=== PATIENT | male | born 1955 | race Caucasian/White ===

== ENCOUNTER 2016-12-11 10:53 | Inpatient (IN) | payer SELFPAY ==
[~2016-12-11] VITALS: Ht 182.9 cm; Wt 32.5 kg
[2016-12-11] VITALS (10 sets, daily range): BP systolic 111–157; BP diastolic 72–95; PULSE 68–90; RESP 16–18; TEMP 97.8–98.1; O2SAT 96–99
[~2016-12-11 10:53] MED LIST: IBUP-238 PO; SULF-154 PO
[2016-12-11] MEDS ORDERED: ZOLO50TA PO (11:05)
[2016-12-11] MEDS ORDERED: LISI10TA3 PO (11:05)
[2016-12-11] MEDS ORDERED: BUPR150CR PO (11:05)
--- NOTE | 2016-12-11 11:10 | PD ---
HPI Chief Complaint: Neuro Symptoms/ Deficits Time Seen by Provider: 10:56 Travel History International Travel<30 days: No Contact w/Intl Traveler<30days: No Traveled to known affect area: No History of Present Illness HPI This patient is brought in by ambulance complaining of right-sided weakness. He woke up with weakness of the right arm and right leg yesterday morning. The duration is 28 hours. Severity symptoms is moderate. He does not have sensory loss or speech slurring or confusion. No recent head injury. Takes no blood thinners and has no prior history of neurologic disease. He does have bipolar and PTSD but thinks those of been fairly well controlled. No alleviating factors. PFSH Past Medical History Bipolar Disorder: Yes Cardiovascular Problems: Yes (HBP) Diminished Hearing: No Hypertension: Yes Immunizations Current: Yes Past Surgical History Tonsillectomy: Yes Social History Alcohol Use: Yes ("couple beers and a couple shots per day") Tobacco Use: Yes (10-15 cigarettes/day (40 years) ) Substance Use: Yes (Marijuana) Allergies-Medications (Allergen,Severity, Reaction): Coded Allergies: No Known Allergies (Verified , 12/11/16) Reported Meds & Prescriptions Reported Meds & Active Scripts Active Reported Zoloft (Sertraline HCl) 50 Mg Tab 50 Mg PO DAILY Lisinopril 10 Mg Tab 10 Mg PO DAILY Wellbutrin SR 12 HR (Bupropion HCl) 150 Mg Tab 150 Mg PO Q12HR Review of Systems General / Constitutional: No: Fever Eyes: No: Visual changes HENT: No: Headaches Cardiovascular: No: Chest Pain or Discomfort Respiratory: No: Shortness of Breath Gastrointestinal: No: Abdominal Pain Genitourinary: No: Dysuria Musculoskeletal: Positive: Weakness, No: Pain Skin: No Rash Neurologic: Positive: Weakness Psychiatric: No: Depression Endocrine: No: Polydipsia Hematologic/Lymphatic: No: Easy Bruising Physical Exam Narrative GENERAL: Well-nourished, well-developed patient in no apparent distress. SKIN: Warm and dry. Chronic scabbed over wound on the lateral left lower leg HEAD: Atraumatic. Normocephalic. EYES: Pupils equal and round. No scleral icterus. No injection or drainage. ENT: No nasal bleeding or discharge. Mucous membranes pink and moist. NECK: Trachea midline. No JVD. CARDIOVASCULAR: Regular rate and rhythm. No murmur appreciated. RESPIRATORY: No accessory muscle use. Clear to auscultation. Breath sounds equal bilaterally. GASTROINTESTINAL: Abdomen soft, non-tender, nondistended. Hepatic and splenic margins not palpable. MUSCULOSKELETAL: No obvious deformities. No clubbing. No cyanosis. No edema. NEUROLOGICAL: Awake and alert. No obvious cranial nerve deficits. Motor exam shows significant weakness of the right arm and right leg. Normal speech. No facial droop. PSYCHIATRIC: Appropriate mood and affect; insight and judgment normal. Data Data Last Documented VS Vital Signs Date Time Temp Pulse Resp B/P Pulse Ox O2 Delivery O2 Flow Rate FiO2 12/11/16 12:50 84 16 129/88 98 Room Air 12/11/16 10:59 98.1 Orders Electrocardiogram (12/11/16 ) Prothrombin Time / Inr (Pt) (12/11/16 11:03) Act Partial Throm Time (Ptt) (12/11/16 11:03) Complete Blood Count With Diff (12/11/16 11:03) Basic Metabolic Panel (Bmp) (12/11/16 11:03) Ct Brain W/O Iv Contrast(Rout) (12/11/16 11:03) Ecg Monitoring (12/11/16 11:03) Iv Access Insert/Monitor (12/11/16 11:03) Oximetry (12/11/16 11:03) Sodium Chloride 0.9% Flush (Ns Flush) (12/11/16 11:15) Aspirin (Aspirin) (12/11/16 12:45) Admit Order (Ed Use Only) (12/11/16 13:37) Labs Laboratory Tests Test 12/11/16 11:00 White Blood Count 9.9 TH/MM3 Red Blood Count 5.21 MIL/MM3 Hemoglobin 14.9 GM/DL Hematocrit 45.1 % Mean Corpuscular Volume 86.6 FL Mean Corpuscular Hemoglobin 28.7 PG Mean Corpuscular Hemoglobin 33.1 % Concent Red Cell Distribution Width 15.3 % Platelet Count 180 TH/MM3 Mean Platelet Volume 8.8 FL Neutrophils (%) (Auto) 72.7 % Lymphocytes (%) (Auto) 15.8 % Monocytes (%) (Auto) 8.8 % Eosinophils (%) (Auto) 2.4 % Basophils (%) (Auto) 0.3 % Neutrophils # (Auto) 7.2 TH/MM3 Lymphocytes # (Auto) 1.6 TH/MM3 Monocytes # (Auto) 0.9 TH/MM3 Eosinophils # (Auto) 0.2 TH/MM3 Basophils # (Auto) 0.0 TH/MM3 CBC Comment DIFF FINAL Differential Comment Prothrombin Time 10.6 SEC Prothromb Time International 1.0 RATIO Ratio Activated Partial 30.1 SEC Thromboplast Time Sodium Level 135 MEQ/L Potassium Level 5.3 MEQ/L Chloride Level 104 MEQ/L Carbon Dioxide Level 26.2 MEQ/L Anion Gap 5 MEQ/L Blood Urea Nitrogen 28 MG/DL Creatinine 1.33 MG/DL Estimat Glomerular Filtration 55 ML/MIN Rate Random Glucose 81 MG/DL Calcium Level 11.1 MG/DL [facility] Medical Decision Making Medical Screen Exam Complete: Yes Emergency Medical Condition: Yes Medical Record Reviewed: Yes Differential Diagnosis CVA, TIA, intracranial hemorrhage, conversion disorder Narrative Course I have reviewed the patient's electronic medical record. He was seen here 6 months ago for evaluation of the left lower leg chronic wound Presentation here is concerning for acute CVA IV placed Reviewed his EKG which shows sinus rhythm without ectopy Extended cardiac monitoring reveals sinus rhythm without ectopy Brain CT shows an age-indeterminate left parietal infarct CBC is normal Metabolic profile is normal Coagulation studies are normal Patient has had right-sided weakness for 28+ hours and therefore is well out of the window for consideration of TPA. I discussed with hospitalist will admit for neurologic evaluation given his acute ischemic stroke causing right-sided weakness Diagnosis Primary Impression: Idiopathic ischemic cerebrovascular accident (CVA) in adult Admitting Information Admitting Physician Requests: Admit Daniel Ramos MD Dec 11, 2016 11:10
[2016-12-11] MEDS ORDERED: SODIUM CHLORIDE 0.9% FLUSH 5 ML FLUSH IVF PRN ×2 (11:15→14:15)
[2016-12-11 11:29] LABS: AUTOMATED NEUTROPHIL # 7.2 TH/MM3 (1.8-7.7); BASOPHIL % 0.3 % (0.0-2.0); EOSINOPHIL # 0.2 TH/MM3 (0-0.4); EOSINOPHIL % 2.4 % (0.0-4.0); HEMATOCRIT 45.1 % (39.0-51.0); HEMO FLAGS DIFF FINAL; LYMPH % 15.8 % (9.0-44.0); LYMPHOCYTE # 1.6 TH/MM3 (1.0-4.8); MEAN CELL VOLUME 86.6 FL (80.0-100.0); MEAN CORPUSCULAR HEMOGLOBIN 28.7 PG (27.0-34.0); MEAN CORPUSCULAR HGB CONC 33.1 % (32.0-36.0); MONO % 8.8 % (0.0-8.0); NEUT % 72.7 % (16.0-70.0); PLATELET COUNT 180 TH/MM3 (150-450); RED BLOOD COUNT 5.21 MIL/MM3 (4.50-5.90); RED CELL DISTRIBUTION WIDTH 15.3 % (11.6-17.2); WHITE BLOOD COUNT 9.9 TH/MM3 (4.0-11.0)
[2016-12-11 11:33] LABS: APTT (PATIENT) 30.1 SEC (24.3-30.1); PROTHROMBIN TIME - PATIENT 10.6 SEC (9.8-11.6)
[2016-12-11 11:39] LABS: BICARBONATE 26.2 MEQ/L (21.0-32.0); POTASSIUM 5.3 MEQ/L (3.5-5.1)
--- NOTE | 2016-12-11 11:52 | RADRPT ---
EXAM DATE/TIME: 12/11/2016 11:33 [facility] COMPARISON: No previous studies available for comparison. INDICATIONS : Weakness right side of body since yesterday. RADIATION DOSE: 42.10 CTDIvol (mGy) MEDICAL HISTORY : Cardiovascular disease. Hypertension. SURGICAL HISTORY : None. ENCOUNTER: Initial ACUITY: 1 day PAIN SCALE: 0/10 LOCATION: cranial TECHNIQUE: Multiple contiguous axial images were obtained of the head. Using automated exposure control and adj ustment of the mA and/or kV according to patient size, radiation dose was kept as low as reasonably a chievable to obtain optimal diagnostic quality images. FINDINGS: CEREBRUM: Patchy areas of low-attenuation are seen throughout the white matter. There is a small area of low-de nsity along the high left parietal convexity could be an area of infarction. The ventricles are jan l for age. No evidence of midline shift, mass lesion, hemorrhage or acute infarction. No extra-axia l fluid collections are seen. POSTERIOR FOSSA: The cerebellum and brainstem are intact. The 4th ventricle is midline. The cerebellopontine angle i s unremarkable. EXTRACRANIAL: The visualized portion of the orbits is intact. SKULL: The calvaria is intact. No evidence of skull fracture. CONCLUSION: 1. Nonspecific white matter changes. 2. Small area of low attenuation high left parietal convexity could be an area of infarct of indeterm inate age. MRI may be warranted. Ruddy Albert MD on December 11, 2016 at 11:49 Board Certified Radiologist. This report was verified electronically.
[2016-12-11] MEDS ORDERED: ASPIRIN 325 MG TAB PO ONE (12:45)
--- NOTE | 2016-12-11 14:04 | HHI.HP ---
[facility] Service [facility] Primary Care Physician Unknown Admission Diagnosis acute ischemic CVA Diagnoses: (1) CVA (cerebral vascular accident) (2) Idiopathic ischemic cerebrovascular accident (CVA) in adult Chief Complaint: Right-sided weakness Travel History International Travel<30 Days: No Contact w/Intl Traveler <30 Da: No Traveled to Known Affected Are: No History of Present Illness 61 year-old male with a history of hypertension, tobacco abuse was brought to the ED for evaluation of right-sided weakness which patient noticed yesterday morning after he woke up from sleep. Had both right arm and right leg weakness and inability to move the whole entire right side and remained in his bed for a few hours before able to make a phone call as patient stated he was unable to reach a phone. He claimed, he was well the night before going to bed. He had no other symptoms including slurring of speech, confusion, chest pain or shortness of breath. He denies any head trauma. He reports about 28 hours of right-sided weakness prior to coming to the hospital. Review of Systems Other 12 systems reviewed and are negative except for the one mentioned in the history of present illness Past Family Social History Past Medical History Bipolar Disorder: Yes Cardiovascular Problems: Yes (HBP) Hypertension: Yes Past Surgical History Tonsillectomy Surgery to left knee Reported Medications Zoloft (Sertraline HCl) 50 Mg Tab 50 Mg PO DAILY Lisinopril 10 Mg Tab 10 Mg PO DAILY Wellbutrin SR 12 HR (Bupropion HCl) 150 Mg Tab 150 Mg PO Q12HR Allergies: Coded Allergies: No Known Allergies (Verified , 12/11/16) Family History Father with history of CAD, Parkinson disease, hypertension Social History Alcohol Use: Social alcohol Tobacco Use: Yes (10-15 cigarettes/day (40 years) ) Substance Use: Yes (Marijuana) Physical Exam Vital Signs Vital Signs Date Time Temp Pulse Resp B/P Pulse Ox O2 Delivery O2 Flow Rate FiO2 12/11/16 12:50 84 16 129/88 98 Room Air 12/11/16 11:52 90 17 150/90 98 Room Air 12/11/16 11:00 17 98 Room Air 12/11/16 11:00 69 17 98 Room Air 12/11/16 10:59 98.1 68 17 157/95 99 Physical Exam GENERAL: This is a well-nourished, well-developed patient, in no apparent distress. SKIN: No rashes, ecchymoses or lesions. Cool and dry. HEAD: Atraumatic. Normocephalic. No temporal or scalp tenderness. EYES: Pupils equal round and reactive. Extraocular motions intact. No scleral icterus. No injection or drainage. ENT: Nose without bleeding, purulent drainage or septal hematoma. Throat without erythema, tonsillar hypertrophy or exudate. Uvula midline. Airway patent. NECK: Trachea midline. No JVD or lymphadenopathy. Supple, nontender, no meningeal signs. CARDIOVASCULAR: Regular rate and rhythm without murmurs, gallops, or rubs. RESPIRATORY: Clear to auscultation. Breath sounds equal bilaterally. No wheezes , rales, or rhonchi. GASTROINTESTINAL: Abdomen soft, non-tender, nondistended. No hepato-splenomegaly , or palpable masses. No guarding. MUSCULOSKELETAL: Extremities without clubbing, cyanosis, or edema. No joint tenderness, effusion, or edema noted. No calf tenderness. Negative Homans sign bilaterally. NEUROLOGICAL: Awake and alert. Cranial nerves II through XII intact. Motor and sensory grossly within normal limits. Five out of 5 muscle strength LUE/LLE. Right sided hemiparesis. Normal speech. Laboratory Laboratory Tests Test 12/11/16 11:00 White Blood Count 9.9 Red Blood Count 5.21 Hemoglobin 14.9 Hematocrit 45.1 Mean Corpuscular Volume 86.6 Mean Corpuscular Hemoglobin 28.7 Mean Corpuscular Hemoglobin 33.1 Concent Red Cell Distribution Width 15.3 Platelet Count 180 Mean Platelet Volume 8.8 Neutrophils (%) (Auto) 72.7 Lymphocytes (%) (Auto) 15.8 Monocytes (%) (Auto) 8.8 Eosinophils (%) (Auto) 2.4 Basophils (%) (Auto) 0.3 Neutrophils # (Auto) 7.2 Lymphocytes # (Auto) 1.6 Monocytes # (Auto) 0.9 Eosinophils # (Auto) 0.2 Basophils # (Auto) 0.0 CBC Comment DIFF FINAL Differential Comment Prothrombin Time 10.6 Prothromb Time International 1.0 Ratio Activated Partial 30.1 Thromboplast Time Sodium Level 135 Potassium Level 5.3 Chloride Level 104 Carbon Dioxide Level 26.2 Anion Gap 5 Blood Urea Nitrogen 28 Creatinine 1.33 Estimat Glomerular Filtration 55 Rate Random Glucose 81 Calcium Level 11.1 Result Diagram: 12/11/16 1100 12/11/16 1100 Imaging Last Impressions Head CT 12/11/16 1103 Signed Impressions: Service Date/Time: Sunday, December 11, 2016 11:33 - CONCLUSION: 1. Nonspecific white matter changes. 2. Small area of low attenuation high left parietal convexity could be an area of infarct of indeterminate age. MRI may be warranted. Ruddy Albert MD Assessment and Plan Problem List: (1) CVA (cerebral vascular accident) ICD Code: I63.9 Status: Acute Assessment and Plan 61-year-old man with Acute CVA: Treatment per stroke protocol -Continue with aspirin -Start statin therapy -NIHSS, Neuro checks, Monitor on telemetry -PT/OT/ST evaluations, consult rehab medicine -allow permissive HTN, IV Vasotec and IV labetalol if SBP >220 -Check lipid profile and HgbA1c -Check carotid U/S -Head CT 12/11/16 noted and review by me with Nonspecific white matter changes. 2. Small area of low attenuation high left parietal convexity could be an area of infarct of indeterminate age -Check brain MRI/MRA -Check echocardiogram and place alter monitoring -Neurology consulted History of hypertension: We will allow for permissive hypertension Nicotinic dependence: Counseled to quit, place nicotine patch DVT prophylaxis: Bilateral SCDs Code Status Full code Discussed Condition With Patient, sister, ED physician Physician Certification 2 Midnight Certification Type: Admission for Inpatient Services Order for Inpatient Services The services are ordered in accordance with Medicare regulations or non- Medicare payer requirements, as applicable. In the case of services not specified as inpatient-only, they are appropriately provided as inpatient services in accordance with the 2-midnight benchmark. Estimated LOS (days): 2 days is the estimated time the patient will need to remain in the hospital, assuming treatment plan goals are met and no additional complications. Post-Hospital Plan: Not yet determined Ruddy Mei MD Dec 11, 2016 14:04
[2016-12-11] MEDS ORDERED: ENALAPRILAT 1.25 MG/ML VIAL IV PRN (14:15)
[2016-12-11] MEDS ORDERED: DEXTROSE 50% IN WATER 50 ML VIAL(D50) IV PUSH PRN (14:15)
[2016-12-11] MEDS ORDERED: GLUCAGON 1 MG/ML VIAL IM/SQ PRN (14:15)
[2016-12-11] MEDS ORDERED: RESP: ALBUTEROL 2.5 MG/IPRATROPIUM 0.5 MG NEB (PRN) NEB (14:15)
--- NOTE | 2016-12-11 15:44 | RADRPT ---
EXAM DATE/TIME: 12/11/2016 14:30 [facility] COMPARISON: No previous studies available for comparison. INDICATIONS : Cerebrovascular accident. MEDICAL HISTORY : Hypertension. SURGICAL HISTORY : Tonsillectomy. Left leg surgery. Right hip surgery. ENCOUNTER: Initial ACUITY: 1 day PAIN SCORE: 0/10 LOCATION: Bilateral neck PEAK SYSTOLIC VELOCITIES (cm/sec): ICA/CCA RATIO: Right: 1.6 Left: 0.0 ICA: Right: 127 Left: 0 CCA: Right: 80 Left: 70 ECA: Right: 155 Left: 159 VERTEBRAL: Right: 76 antegrade Left: 108 antegrade Elevated flow velocities and ICA/CCA ratios have been found to correlate with increased degrees of vessel stenosis, calculated as percentage of diameter relative to a normal segment of distal ICA/CCA FINDINGS: RIGHT CAROTID: No significant stenosis is visualized. The waveforms are within normal limits. LEFT CAROTID: The left internal carotid artery is occluded. VERTEBRAL ARTERIES: Antegrade flow is seen in both vertebral arteries. MISCELLANEOUS: None. CONCLUSION: Occlusion of the left internal carotid artery. Calcific plaque on the right without hemodynamically significant stenosis. Khoi Sanchez MD FACR on December 11, 2016 at 15:39 Board Certified Radiologist. This report was verified electronically.
[2016-12-11 16:07] LABS: HEMOGLOBIN A1a 0.8 %; HEMOGLOBIN A1b 1.4 %; HEMOGLOBIN Ao 86.7 %; HEMOGLOBIN LA1C 1.9 %; HEMOGLOBIN P3 3.5 %
[2016-12-11] MEDS: INSULIN ASPART SUPPLEMENTAL SCALE SQ SCH ×2 (16:10→21:00)
--- NOTE | 2016-12-11 18:52 | PD.CONS ---
History of Present Illness Service Neurology Consult Requested By er Reason for Consult stroke Primary Care Physician Unknown History of Present Illness 61 year-old male with a history of hypertension, tobacco abuse was brought to the ED for evaluation of right-sided weakness which patient noticed yesterday morning after he woke up from sleep. out of tpa window. onset unknown. mri brain shows scattered left hemispheric infarcts on my review. carotid u/s with left ica occlusion. not on any blood thinners. no hx of stroke/tia. no hx of xrt to neck. no hx of trauma. Review of Systems Other 12 systems reviewed and are negative except for the one mentioned in the history of present illness Past Family Social History Past Medical History Bipolar Disorder: Yes Cardiovascular Problems: Yes (HBP) Hypertension: Yes Past Surgical History Tonsillectomy Surgery to left knee Reported Medications Zoloft (Sertraline HCl) 50 Mg Tab 50 Mg PO DAILY Lisinopril 10 Mg Tab 10 Mg PO DAILY Wellbutrin SR 12 HR (Bupropion HCl) 150 Mg Tab 150 Mg PO Q12HR Allergies: Coded Allergies: No Known Allergies (Verified , 12/11/16) Family History Father with history of CAD, Parkinson disease, hypertension Social History Alcohol Use: Social alcohol Tobacco Use: Yes (10-15 cigarettes/day (40 years) ) Substance Use: Yes (Marijuana) Review of Systems All other ROS: ROS reviewed as documented in chart Past Family Social History Allergies: Coded Allergies: No Known Allergies (Verified , 12/11/16) Active Ordered Medications Current Medications Medications (Trade) Dose Ordered Sig/Matias Route Start Time Stop Time Status Last Admin (NS Flush) 2 ml BID IVF 12/11/16 21:00 (NS Flush) 2 ml UNSCH PRN IVF 12/11/16 14:15 (Vasotec Inj) 1.25 mg Q4H PRN IV 12/11/16 14:15 (Aspirin Chew) 81 mg DAILY PO 12/12/16 09:00 (Lipitor) 10 mg HS PO 12/11/16 21:00 (D50w (Vial) Inj) 25 ml UNSCH PRN IV PUSH 12/11/16 14:15 (Glucagon Inj) 1 mg UNSCH PRN IM/SQ 12/11/16 14:15 Exam I&O / VS Vital Signs Date Time Temp Pulse Resp B/P Pulse Ox O2 Delivery O2 Flow Rate FiO2 12/11/16 18:40 71 16 125/75 99 Room Air 12/11/16 16:00 98.0 76 17 142/81 99 Room Air 12/11/16 14:00 97.8 72 16 140/81 99 Room Air 12/11/16 12:50 84 16 129/88 98 Room Air 12/11/16 11:52 90 17 150/90 98 Room Air 12/11/16 11:00 17 98 Room Air 12/11/16 11:00 69 17 98 Room Air 12/11/16 10:59 98.1 68 17 157/95 99 General: Alert and Oriented, No acute distress Eye: EOMI Neurologic: Alert Psychiatric: Cooperative Exam Comments alert, ox 3, able to follow and converse, slightly dysarthric speech, eomi, vff , rt reduced nlf, rt hemiparesis. rt hand 2-3/5 with reduced FF. unable to raise arm or leg to gravity Review/Management Diagnosis/Plan: (1) Acute ischemic left internal carotid artery (ICA) stroke Plan: 2/2 left ica occlusion recs permissive htn aspirin daily tobacco cessation f/u lipid profile rehab planning when accepted (2) Carotid occlusion, left (3) Tobacco use Plan: cessation encouraged Herve Sanchez MD Dec 11, 2016 18:52
--- NOTE | 2016-12-11 19:11 | RADRPT ---
EXAM DATE/TIME: 12/11/2016 18:11 [facility] COMPARISON: MRI BRAIN W/O CONTRAST, December 11, 2016, 18:11. US CAROTID ARTERIES, December 11, 2016, 14:30. CT BRAIN W/O CONTRAST, December 11, 2016, 11:33. INDICATIONS : Right sided weakness. CVA. MEDICAL HISTORY : Hypertension. SURGICAL HISTORY : Tonsillectomy. Right hip. ENCOUNTER: Subsequent ACUITY: 2 day PAIN SCORE: 0/10 LOCATION: head. Please note a normal MRA of the brain does not entirely exclude the possibility of a small aneurysm, nor the possibility of distal intracranial vessel disease. TECHNIQUE: 3D time of flight MRA was performed. Source images, multiplanar STS MIP, and 3D volume MIP reconstru ctions were reviewed. FINDINGS: MRA confirms occlusion of the left internal carotid artery. There is reconstituted flow to the suprac linoid internal carotid artery and left MCA via the anterior communicating artery. Significantly dimi nished flow is identified in the left MCA compared to the right. Small filling defects appear to be p resent within the A1 segment of the left anterior cerebral artery and M1 segment of the left MCA. The right intraparotid artery and right cerebral circulation is well-maintained. Vertebral basilar system is unremarkable. CONCLUSION: Occluded left internal carotid artery with markedly diminished flow in the left MCA as described. Intact right cerebral circulation and vertebral basilar circulation. Vinay Montalvo MD on December 11, 2016 at 19:04 Board Certified Radiologist. This report was verified electronically.
--- NOTE | 2016-12-11 19:15 | RADRPT ---
EXAM DATE/TIME: 12/11/2016 18:11 [facility] COMPARISON: No previous studies available for comparison. INDICATIONS : Right sided weakness. CVA. MEDICAL HISTORY : Hypertension. SURGICAL HISTORY : Tonsillectomy. Right hip repair. ENCOUNTER: Subsequent ACUITY: 2 day PAIN SCORE: 0/10 LOCATION: head. TECHNIQUE: Multiplanar, multisequence MRI of the brain was performed without contrast. FINDINGS: Restricted diffusion is identified in the left basal ganglia involving the head of the caudate nucleu s, globus pallidus centrum semi-ovale. Additional patchy areas of restricted diffusion are seen in th e occipital, frontal and parietal lobes. There is no evidence of associated hemorrhage, significant e ramirez or mass effect. Right cerebral hemisphere, brain stem and cerebellum are unremarkable. CONCLUSION: Acute nonhemorrhagic infarcts involving the left basal ganglia, left frontal lobe, left parietal lobe and left occipital lobe. Documented left internal carotid occlusion per MRA. No significant mass effect. Vinay Montalvo MD on December 11, 2016 at 19:10 Board Certified Radiologist. This report was verified electronically.
--- NOTE | 2016-12-11 21:05 | EC ---
Study Study Date:12/11/2016 STUDY CONCLUSIONS SUMMARY - Left ventricle: The cavity size was normal. Wall thickness was increased in a pattern of mild LVH. Systolic function was normal. The estimated ejection fraction was 60%. Wall motion was normal; there were no regional wall motion abnormalities. - Aortic valve: Trace regurgitation. - Mitral valve: Mild regurgitation. - Right ventricle: The cavity size was mildly dilated. Wall thickness was normal. - Tricuspid valve: Mild regurgitation. If LV function is below 40, please consider prescribing an ACEI or ARB or document rationale for non-use. PROCEDURE DATA STUDY STATUS: Elective. Procedure: Transthoracic echocardiography. Image quality was good. Scanning was performed from the parasternal, apical, and subcostal acoustic windows. Study completion: The patient tolerated the procedure well. Transthoracic echocardiography. M-mode, complete 2D, complete spectral Doppler, and color Doppler. Height: Height: 72in. Weight: Weight: 201.6lb. Body mass index: BMI: 27.4kg/m^2. Body surface area: BSA: 2.14m^2. Patient status: Inpatient. CARDIAC ANATOMY LEFT VENTRICLE: The cavity size was normal. Wall thickness was increased in a pattern of mild LVH. Systolic function was normal. The estimated ejection fraction was 60%. Wall motion was normal; there were no regional wall motion abnormalities. AORTIC VALVE: Trileaflet; normal thickness leaflets. Doppler: Transvalvular velocity was within the normal range. There was no stenosis. Trace regurgitation. Valve area: 3.67cm^2(VTI). Indexed valve area: 1.71cm^2/m^2 (VTI). Valve area: 3.58cm^2 (Vmax). Indexed valve area: 1.67cm^2/m^2 (Vmax). Mean gradient: 3mm Hg (S). AORTA: Aortic root: The aortic root was normal in size. MITRAL VALVE: Structurally normal valve. Doppler: Transvalvular velocity was within the normal range. There was no evidence for stenosis. Mild regurgitation. LEFT ATRIUM: The atrium was normal in size. RIGHT VENTRICLE: The cavity size was mildly dilated. Wall thickness was normal. PULMONIC VALVE: Doppler: Transvalvular velocity was within the normal range. There was no evidence for stenosis. No regurgitation. TRICUSPID VALVE: Structurally normal valve. Doppler: Transvalvular velocity was within the normal range. Mild regurgitation. PULMONARY ARTERY: The main pulmonary artery was normal-sized. Systolic pressure was within the normal range. RIGHT ATRIUM: The atrium was normal in size. PERICARDIUM: There was no pericardial effusion. SYSTEMIC VEINS: Inferior vena cava: The vessel was normal in size. Patient weight: 201.6lb _Ejection fraction:_ 65-75% _Fractional shortening:_ 32% up to 5Kg 5-11.5Kg 11.6-22.9Kg 23-45Kg 45-57Kg Aortic Root 7-13 <17 13-22 17-27 17-27 LA diam 6-13 <23 24-38 33-47 37-40 RVID 10-17 7-15 7-15 7-18 8-17 LVIDd 12-22 <32 24-38 33-47 37-40 LVPW 2-4 3-6 5-7 6-8 7-8 IVS 2-4 3-6 5-7 6-8 7-8 BASIC MEASUREMENTS ADULT NORMAL Left ventricle LV internal dimension, ED, chordal *35.8 mm 43-52 level, PLAX LV internal dimension, ES, chordal 24.6 mm 23-38 level, PLAX Fractional shortening, chordal level, 31 % >29 PLAX LV posterior wall thickness, ED 12.9 mm IVS/LVPW ratio, ED 0.98 <1.3 Ventricular septum Septal thickness, ED 12.6 mm Aortic valve Leaflet separation 20 mm 15-26 Aorta Root diameter, ED 37 mm Left atrium Anterior-posterior dimension 24 mm Anterior-posterior dimension index 1.12 cm/m^2 <2.2 BASIC MEASUREMENTS ADULT NORMAL Aortic valve Leaflet separation 20 mm 15-26 DOPPLER MEASUREMENTS ADULT NORMAL Main pulmonary artery Pressure, S 30 mm Hg =30 Aortic valve Peak velocity, S 117 cm/s Mean velocity, S 82.1 cm/s VTI, S 16.3 cm Mean gradient, S 3 mm Hg Valve area, VTI 3.67 cm^2 Valve area index, VTI 1.71 cm^2/m^2 Valve area, Vmax 3.58 cm^2 Valve area index, Vmax 1.67 cm^2/m^2 Mitral valve Peak E-wave velocity 43.9 cm/s Peak A-wave velocity 77.5 cm/s Deceleration time *261 ms 150-230 Peak E/A ratio 0.6 Tricuspid valve Regurgitant peak velocity 259 cm/s Peak RV-RA gradient, S 27 mm Hg Maximal regurgitant velocity 259 cm/s Systemic veins Estimated CVP 5 mm Hg Right ventricle RV pressure, S *32 mm Hg <30 Pulmonic valve Peak velocity, S 63.2 cm/s LEGEND: Mean values are shown as u=mean value. Asterisk (*) malik values outside specified normal range. Prepared and signed by Oseas Contreras [id number]
[2016-12-11] MEDS: SODIUM CHLORIDE 0.9% FLUSH 5 ML FLUSH IVF SCH (22:40)
[2016-12-11] MEDS: ATORVASTATIN 10 MG TAB PO SCH (22:40)
[2016-12-11] MEDS: HEPARIN SODIUM - SQ 10,000 UNITS/ML VIAL SQ SCH (22:41)
[2016-12-12] VITALS (9 sets, daily range): BP systolic 129–168; BP diastolic 77–93; PULSE 61–73; RESP 18; TEMP 97.1–98.3; O2SAT 95–97
[2016-12-12] MEDS: HEPARIN SODIUM - SQ 10,000 UNITS/ML VIAL SQ SCH ×3 (06:00→21:34)
[2016-12-12] MEDS: INSULIN ASPART SUPPLEMENTAL SCALE SQ SCH ×4 (07:00→21:00)
[2016-12-12 08:52] LABS: HDL CHOLESTEROL 39.4 MG/DL (40.0-60.0)
[2016-12-12] MEDS ORDERED: ASPIRIN 81 MG CHEW TAB PO SCH (09:00)
[2016-12-12] MEDS: NICOTINE 14 MG/24 HR PATCH TD SCH (09:10)
[2016-12-12] MEDS: ASPIRIN 325 MG TAB PO SCH (09:10)
[2016-12-12] MEDS: REMOVE OLD NICODERM (NICOTINE) PATCH TD SCH (09:11)
[2016-12-12] MEDS: SODIUM CHLORIDE 0.9% FLUSH 5 ML FLUSH IVF SCH ×2 (09:14→21:35)
--- NOTE | 2016-12-12 10:09 | HHI.PR ---
Subjective Remarks Follow-up acute ischemic stroke 12/12/16-patient seen and examined, no change and stable. Still with right- sided weakness/hemiparesis. Objective Vitals Vital Signs Date Time Temp Pulse Resp B/P Pulse Ox O2 Delivery O2 Flow Rate FiO2 12/12/16 07:57 97.1 61 18 168/93 97 12/12/16 03:55 98.0 66 18 133/79 97 12/12/16 00:49 98.3 73 18 130/77 95 12/11/16 23:00 71 12/11/16 21:27 98.0 70 18 111/72 97 12/11/16 20:09 73 18 120/76 96 Room Air 12/11/16 18:40 71 16 125/75 99 Room Air 12/11/16 16:00 98.0 76 17 142/81 99 Room Air 12/11/16 14:00 97.8 72 16 140/81 99 Room Air 12/11/16 12:50 84 16 129/88 98 Room Air 12/11/16 11:52 90 17 150/90 98 Room Air 12/11/16 11:00 17 98 Room Air 12/11/16 11:00 69 17 98 Room Air 12/11/16 10:59 98.1 68 17 157/95 99 I/O 12/11/16 12/11/16 12/11/16 12/12/16 12/12/16 12/12/16 07:00 15:00 23:00 07:00 15:00 23:00 Intake Total 200 ml 200 ml 480 ml Output Total 0 ml 350 ml Balance 200 ml 200 ml 130 ml Intake Oral 200 ml 200 ml 480 ml Output Urine Total 0 ml 350 ml # Bowel Movements 1 Result Diagram: 12/11/16 1100 12/11/16 1100 Imaging Last Impressions Head CT 12/11/16 1103 Signed Impressions: Service Date/Time: Sunday, December 11, 2016 11:33 - CONCLUSION: 1. Nonspecific white matter changes. 2. Small area of low attenuation high left parietal convexity could be an area of infarct of indeterminate age. MRI may be warranted. Ruddy Albert MD Head Magnetic Resonance Angiography 12/11/16 0000 Signed Impressions: Service Date/Time: Sunday, December 11, 2016 18:11 - CONCLUSION: Occluded left internal carotid artery with markedly diminished flow in the left MCA as described. Intact right cerebral circulation and vertebral basilar circulation. Vinay Montalvo MD Carotid Artery Ultrasound 12/11/16 0000 Signed Impressions: Service Date/Time: Sunday, December 11, 2016 14:30 - CONCLUSION: Occlusion of the left internal carotid artery. Calcific plaque on the right without hemodynamically significant stenosis. Khoi Sanchez MD FACR Brain MRI 12/11/16 0000 Signed Impressions: Service Date/Time: Sunday, December 11, 2016 18:11 - CONCLUSION: Acute nonhemorrhagic infarcts involving the left basal ganglia, left frontal lobe, left parietal lobe and left occipital lobe. Documented left internal carotid occlusion per MRA. No significant mass effect. Vinay Montalvo MD Objective Remarks GENERAL: NAD SKIN: Warm and dry. HEAD: Normocephalic. EYES: No scleral icterus. No injection or drainage. NECK: Supple, trachea midline. No JVD or lymphadenopathy. CARDIOVASCULAR: Regular rate and rhythm without murmurs, gallops, or rubs. RESPIRATORY: Breath sounds equal bilaterally. No accessory muscle use. GASTROINTESTINAL: Abdomen soft, non-tender, nondistended. MUSCULOSKELETAL: No cyanosis, or edema. NEURO: Right sided hemiparesis BACK: Nontender without obvious deformity. No CVA tenderness. A/P Problem List: (1) CVA (cerebral vascular accident) ICD Code: I63.9 Status: Acute (2) Idiopathic ischemic cerebrovascular accident (CVA) in adult ICD Code: I63.9 Status: Acute Assessment and Plan 61-year-old man with Acute CVA: Treatment per stroke protocol -Continue with aspirin -Continue statin therapy -NIHSS, Neuro checks, Monitor on telemetry -PT/OT/ST evaluations, consult rehab medicine -allow permissive HTN, IV Vasotec and IV labetalol if SBP >220 -LDL 104 and HgbA1c -Carotid U/S noted -Head CT 12/11/16 noted and review by me with Nonspecific white matter changes. 2. Small area of low attenuation high left parietal convexity could be an area of infarct of indeterminate age - brain MRI/MRA findings noted -Check echocardiogram and Holter monitoring pending -Neurology ff Occlusion of the left internal carotid artery: Brain MRA and carotid ultrasound finding. May consider consultation from vascular surgery History of hypertension: continue permissive hypertension Nicotinic dependence: Counseled to quit, tx with nicotine patch DVT prophylaxis: Bilateral SCDs Ruddy Mei MD Dec 12, 2016 10:09
[2016-12-12] MEDS: ATORVASTATIN 10 MG TAB PO SCH (21:34)
[2016-12-13] VITALS (8 sets, daily range): BP systolic 124–158; BP diastolic 76–94; PULSE 60–73; RESP 18–20; TEMP 97–98.6; O2SAT 93–97
--- NOTE | 2016-12-13 00:05 | EKG ---
Date Performed: 12/11/2016 Time Performed: 11:00:35 PTAGE: 61 years EKG: Sinus rhythm NORMAL ECG NO PREVIOUS TRACING DOCTOR: Jareth Franz Interpretating Date/Time 12/13/2016 00:04:12
[2016-12-13] MEDS: HEPARIN SODIUM - SQ 10,000 UNITS/ML VIAL SQ SCH ×3 (05:35→20:51)
[2016-12-13] MEDS: INSULIN ASPART SUPPLEMENTAL SCALE SQ SCH ×3 (06:42→16:00)
[2016-12-13] MEDS: ASPIRIN 325 MG TAB PO SCH (07:55)
--- NOTE | 2016-12-13 07:58 | HHI.PR ---
Review/Management Diagnosis/Plan: (1) Acute ischemic left internal carotid artery (ICA) stroke Plan: 2/2 left ica occlusion recs exam stable aspirin/statin/tobacco cessation rehab planning when accepted will sign off; call if ? (2) Carotid occlusion, left Plan: antiplatelets/avoid hypotension (3) Tobacco use Plan: cessation encouraged Subjective Subjective Comments No acute events reported No headache No chest pain No dyspnea Active Medications Current Medications Medications (Trade) Dose Ordered Sig/Matias Route Start Time Stop Time Status Last Admin (NS Flush) 2 ml BID IVF 12/11/16 21:00 12/12/16 21:35 (NS Flush) 2 ml UNSCH PRN IVF 12/11/16 14:15 (Vasotec Inj) 1.25 mg Q4H PRN IV 12/11/16 14:15 (Lipitor) 10 mg HS PO 12/11/16 21:00 12/12/16 21:34 (D50w (Vial) Inj) 25 ml UNSCH PRN IV PUSH 12/11/16 14:15 (Glucagon Inj) 1 mg UNSCH PRN IM/SQ 12/11/16 14:15 (Aspirin) 325 mg DAILY PO 12/12/16 09:00 12/12/16 09:10 (Heparin Inj) 5,000 units Q8HR SQ 12/11/16 22:00 12/13/16 05:35 (Habitrol 14 Mg Patch.24 Hr) 1 patch DAILY TD 12/12/16 09:00 12/12/16 09:10 Miscellaneous Information 1 HS TD 12/12/16 21:00 Allergies Allergies Coded Allergies No Known Allergies (Verified12/11/16) Review of Systems All other ROS: ROS reviewed as documented in chart Exam I&O / VS 12/12/16 12/12/16 12/13/16 15:00 23:00 07:00 Intake Total 360 ml 480 ml Balance 360 ml 480 ml Intake Oral 360 ml 480 ml # Voids 2 3 # Bowel Movements 1 Vital Signs Date Time Temp Pulse Resp B/P Pulse Ox O2 Delivery O2 Flow Rate FiO2 12/13/16 04:00 97.0 71 18 158/94 93 12/13/16 00:00 98.0 67 18 133/82 96 12/12/16 22:12 68 12/12/16 20:00 98.1 71 18 138/86 96 12/12/16 16:38 97.8 69 18 137/84 96 12/12/16 13:17 97.6 65 18 129/77 97 12/12/16 12:00 63 12/12/16 10:22 96 21 12/12/16 07:57 97.1 61 18 168/93 97 General: Alert and Oriented, No acute distress Eye: EOMI Neurologic: Alert Psychiatric: Cooperative Exam Comments alert, ox 3, able to follow and converse, slightly dysarthric speech, eomi, vff , rt reduced nlf, rt hemiparesis. rt hand 2-3/5 with reduced FF but attempts to open and close hand, rt distal leg some toe movement. unable to raise arm or leg to gravity Herve Sanchez MD Dec 13, 2016 07:58
[2016-12-13] MEDS: NICOTINE 14 MG/24 HR PATCH TD SCH (07:59)
[2016-12-13] MEDS: REMOVE OLD NICODERM (NICOTINE) PATCH TD SCH (08:02)
--- NOTE | 2016-12-13 08:56 | HHI.PR ---
Subjective Remarks Follow-up acute ischemic stroke 12/12/16-patient seen and examined, no change and stable. Still with right- sided weakness/hemiparesis. 12/13/16-patient seen and examined, complains of right sided chest pain and he is wondering if he has not broken a rib otherwise he is stable Objective Vitals Vital Signs Date Time Temp Pulse Resp B/P Pulse Ox O2 Delivery O2 Flow Rate FiO2 12/13/16 08:52 97.6 72 18 153/88 94 12/13/16 04:00 97.0 71 18 158/94 93 12/13/16 00:00 98.0 67 18 133/82 96 12/12/16 22:12 68 12/12/16 20:00 98.1 71 18 138/86 96 12/12/16 16:38 97.8 69 18 137/84 96 12/12/16 13:17 97.6 65 18 129/77 97 12/12/16 12:00 63 12/12/16 10:22 96 21 I/O 12/12/16 12/12/16 12/12/16 12/13/16 12/13/16 12/13/16 07:00 15:00 23:00 07:00 15:00 23:00 Intake Total 480 ml 360 ml 480 ml Output Total 350 ml Balance 130 ml 360 ml 480 ml Intake Oral 480 ml 360 ml 480 ml Output Urine Total 350 ml # Voids 2 3 # Bowel Movements 1 Result Diagram: 12/11/16 1100 12/11/16 1100 Imaging Last Impressions Head CT 12/11/16 1103 Signed Impressions: Service Date/Time: Sunday, December 11, 2016 11:33 - CONCLUSION: 1. Nonspecific white matter changes. 2. Small area of low attenuation high left parietal convexity could be an area of infarct of indeterminate age. MRI may be warranted. Ruddy Albert MD Head Magnetic Resonance Angiography 12/11/16 0000 Signed Impressions: Service Date/Time: Sunday, December 11, 2016 18:11 - CONCLUSION: Occluded left internal carotid artery with markedly diminished flow in the left MCA as described. Intact right cerebral circulation and vertebral basilar circulation. Vinay Montalvo MD Carotid Artery Ultrasound 12/11/16 0000 Signed Impressions: Service Date/Time: Sunday, December 11, 2016 14:30 - CONCLUSION: Occlusion of the left internal carotid artery. Calcific plaque on the right without hemodynamically significant stenosis. Khoi Sanchez MD FACR Brain MRI 12/11/16 0000 Signed Impressions: Service Date/Time: Sunday, December 11, 2016 18:11 - CONCLUSION: Acute nonhemorrhagic infarcts involving the left basal ganglia, left frontal lobe, left parietal lobe and left occipital lobe. Documented left internal carotid occlusion per MRA. No significant mass effect. Vinay Montalvo MD Objective Remarks GENERAL: NAD SKIN: Warm and dry. HEAD: Normocephalic. EYES: No scleral icterus. No injection or drainage. NECK: Supple, trachea midline. No JVD or lymphadenopathy. CARDIOVASCULAR: Regular rate and rhythm without murmurs, gallops, or rubs. RESPIRATORY: Breath sounds equal bilaterally. No accessory muscle use. GASTROINTESTINAL: Abdomen soft, non-tender, nondistended. MUSCULOSKELETAL: No cyanosis, or edema. NEURO: Right sided hemiparesis BACK: Nontender without obvious deformity. No CVA tenderness. Procedures None A/P Problem List: (1) CVA (cerebral vascular accident) ICD Code: I63.9 Status: Acute (2) Idiopathic ischemic cerebrovascular accident (CVA) in adult ICD Code: I63.9 Status: Acute Assessment and Plan 61-year-old man with Acute CVA: Treatment per stroke protocol -Continue with aspirin -Continue statin therapy -NIHSS, Neuro checks, Monitor on telemetry -PT/OT/ST evaluations, consult rehab medicine -d/c permissive HTN, IV Vasotec and IV labetalol if SBP >220 -LDL 104 and HgbA1c -Carotid U/S noted -Head CT 12/11/16 noted and review by me with Nonspecific white matter changes. 2. Small area of low attenuation high left parietal convexity could be an area of infarct of indeterminate age - brain MRI/MRA findings noted -Check echocardiogram and Holter monitoring pending -Neurology ff Occlusion of the left internal carotid artery: Brain MRA and carotid ultrasound finding noted. May consider consultation from vascular surgery History of hypertension: d/c permissive hypertension; start Low dose BB Nicotinic dependence: Counseled to quit, tx with nicotine patch DVT prophylaxis: Bilateral SCDs Ruddy Mei MD Dec 13, 2016 08:56
[2016-12-13] MEDS: METOPROLOL TARTRATE 50 MG TAB PO SCH ×2 (10:50→20:50)
[2016-12-13] MEDS: SODIUM CHLORIDE 0.9% FLUSH 5 ML FLUSH IVF SCH ×2 (11:00→20:51)
--- NOTE | 2016-12-13 17:53 | PD.CONS ---
[facility] Service Rehabilitation Medicine Consult Requested By Daniel Mei M.D. Reason for Consult Comprehensive rehabilitation evaluation. Primary Care Physician Unknown History of Present Illness Jelani Melo is a 61-year-old [id number] male admitted [facility] 12/11 with right sided weakness. Head CT showed nonspecific white matter changes with a small area of low attenuation in the high left parietal convexity consistent with possible small infarct of undetermined age. Brain MRI showed acute nonhemorrhagic infarcts in the left basal ganglia, left frontal, left parietal and left occipital areas. Carotid ultrasound showed left internal carotid artery occlusion. Echocardiogram showed ejection fraction of 60%. Review of Systems Constitutional: COMPLAINS OF: Fatigue Eyes: DENIES: Diplopia Ears, nose, mouth, throat: DENIES: Hearing loss Respiratory: DENIES: Shortness of breath Cardiovascular: COMPLAINS OF: Chest pain (far right lateral chest wall where he reports he fell at time of stroke) Gastrointestinal: COMPLAINS OF: Constipation Genitourinary: DENIES: Urinary incontinence Integumentary: DENIES: Rash Hematologic/lymphatic: DENIES: Bruising Immunologic/allergic: DENIES: Urticaria Neurologic: COMPLAINS OF: Headache, Localized weakness, Speech Problems Psychiatric: DENIES: Confusion Past Family Social History Allergies: Coded Allergies: No Known Allergies (Verified , 12/11/16) Past Medical History Hypertension Past Surgical History None Current Medications Current Medications Medications (Trade) Dose Ordered Sig/Matias Route Start Time Stop Time Status Last Admin (NS Flush) 2 ml BID IVF 12/11/16 21:00 12/13/16 11:00 (NS Flush) 2 ml UNSCH PRN IVF 12/11/16 14:15 (Vasotec Inj) 1.25 mg Q4H PRN IV 12/11/16 14:15 (Lipitor) 10 mg HS PO 12/11/16 21:00 12/12/16 21:34 (D50w (Vial) Inj) 25 ml UNSCH PRN IV PUSH 12/11/16 14:15 (Glucagon Inj) 1 mg UNSCH PRN IM/SQ 12/11/16 14:15 (Aspirin) 325 mg DAILY PO 12/12/16 09:00 12/13/16 07:55 (Heparin Inj) 5,000 units Q8HR SQ 12/11/16 22:00 12/13/16 15:22 (Habitrol 14 Mg Patch.24 Hr) 1 patch DAILY TD 12/12/16 09:00 12/13/16 07:59 Miscellaneous Information 1 HS TD 12/12/16 21:00 12/13/16 08:02 (Lopressor) 50 mg Q12HR PO 12/13/16 09:00 12/13/16 10:50 Family History Father: Coronary artery disease, Parkinson's disease, hypertension Mother: Low back pain Social History Prior to admission patient lived in [place], [place] alone. He reports that he has family in the area to assist him. He reports he was able to ambulate household and community distances using a walker due to previous left lower extremity injury. He has a 40 pack tobacco history. Marijuana use. Exam I&O / VS 12/12/16 12/12/16 12/13/16 15:00 23:00 07:00 Intake Total 360 ml 480 ml Balance 360 ml 480 ml Intake Oral 360 ml 480 ml # Voids 2 3 # Bowel Movements 1 Vital Signs Date Time Temp Pulse Resp B/P Pulse Ox O2 Delivery O2 Flow Rate FiO2 12/13/16 16:39 98.6 60 18 124/76 97 12/13/16 12:54 98.3 64 18 136/81 95 12/13/16 09:26 73 12/13/16 08:52 97.6 72 18 153/88 94 12/13/16 04:00 97.0 71 18 158/94 93 12/13/16 00:00 98.0 67 18 133/82 96 12/12/16 22:12 68 12/12/16 20:00 98.1 71 18 138/86 96 General: No acute distress Respiratory: Lungs CTA, Non-labored respirations, BS equal Gastrointestinal: Hypoactive Bowel Sounds, Non-Distended Cardiovascular: Normal rate, Regular Rhythm Skin: Wound(s) (left lower leg anterior chronic ulcer) Psychiatric: Cooperative, Appropriate mood & affect Orientation: oriented to Self, oriented to Place, oriented to Time, oriented to Situation Neurologic: Pupils (PERRLA), EOM (intact), Facial Symmetry (symmetric), Speech (mild dysarthria but intelligible), Neglect (none noted) Motor: Right Upper Extremity (Shoulder adduction and elbow flexion 0/5; records supervisor 2/ 5), Left Upper Extremity (5/5), Right Lower Extremity (hip and knee extension 0/ 5; ankle plantarflexion 1/5), Left Lower Extremity (5/5) Sensory Present but impaired light touch in the right upper lower extremity DTRs: Normal (1+ throughout) Clonus: Negative Assessment and Plan Diagnosis: (1) CVA (cerebral vascular accident) Qualified Code: I63.232 - Cerebrovascular accident (CVA) due to occlusion of left carotid artery (2) Carotid occlusion, left (3) Tobacco use (4) Hypertension Qualified Code: I10 - Essential hypertension Assessment 1. Left internal carotid artery occlusion with left basal ganglia, left frontal , left parietal and left occipital infarcts with right hemiparesis and right hemisensory impairment 2. Hypertension 3. History of tobacco use Plan 1. Physical therapy is providing mobility training and patient is now mod to max assist for transfers. Continue to progress to gait as feasible. Anticipate patient will need right lower extremity bracing 2. Occupational therapy for ADLs and patient is currently maximal assistance for grooming independent for dressing. Continue to progress as feasible 3. Speech therapy for cognitive evaluation 4. Close supervision for fall prevention 5. Continue to monitor skin and elevate right heel when in bed 6. Patient will likely need ongoing inpatient rehabilitation at discharge. Case management is working on disposition planning 7. Will follow while hospitalized and at discharge Thank you for this consult Asya Alfonso MD Dec 13, 2016 17:53
[2016-12-13] MEDS: ATORVASTATIN 10 MG TAB PO SCH (20:50)
--- NOTE | 2016-12-13 23:51 | HM ---
Date Performed: 12/11/2016 Time Performed: 21:34:00 HOOKUP DATE: 12/11/16 09:34:00 PM Wed ANALYSIS START TIME: 12/11/2016 9:39:00 PM ANALYSIS END TIME: 12/12/2016 8:54:46 PM PATIENT AGE: 61 PATIENT HEIGHT PATIENT WEIGHT DRUG LIST PATIENT DIAGNOSIS TEST NARRATIVE: The patient's average heart rate was 70 BPM. No episodes of tachycardia wer e noted. No episodes of bradycardia were noted. No pauses exceeding 2.0 seconds were noted. 4 ventricular ectopics, which represented < 1% of the total beat count, were noted. The highest vent ricular ectopic frequency occurred from 01:00 PM to 02:00 PM Sana. During this time 2 VE(s) occurred. Ventricular ectopics were observed as 4 isolated beat(s) only. No couplets or runs were noted. 8 supraventricular ectopics, which represented < 1% of the total beat count, were noted. The highes t supraventricular ectopic frequency occurred from 09:00 AM to 10:00 AM Sana. During this time 3 SVE( s) occurred. No episodes of ST depression (defined as -1.0 mm or more) were noted in channel 1. No episodes of ST depression (defined as -1.0 mm or more) were noted in channel 2. No episodes of ST depression (defined as -1.0 mm or more) were noted in channel 3. PATIENT DIARY WAS NOT RETURNED WITH HOLTER MONITOR. TEST INTERPRETATION: Sinus rhythm . No supraventricular tachycardia No ventricular tachycardia No pause observed There is no entry in t he diary Signed by : Sean Marrero
[2016-12-14] VITALS (8 sets, daily range): BP systolic 118–156; BP diastolic 62–92; PULSE 52–64; RESP 18–20; TEMP 97.3–98.9; O2SAT 93–96
[2016-12-14] MEDS: HEPARIN SODIUM - SQ 10,000 UNITS/ML VIAL SQ SCH ×3 (05:48→22:25)
[2016-12-14] MEDS: SODIUM CHLORIDE 0.9% FLUSH 5 ML FLUSH IVF SCH ×2 (09:00→22:25)
--- NOTE | 2016-12-14 09:46 | HHI.PR ---
Subjective Remarks Follow-up acute ischemic stroke 12/12/16-patient seen and examined, no change and stable. Still with right- sided weakness/hemiparesis. 12/13/16-patient seen and examined, complains of right sided chest pain and he is wondering if he has not broken a rib otherwise he is stable 12/14/16-patient seen and examined, now able to move his right wrist. no acute event overnight. Objective Vitals Vital Signs Date Time Temp Pulse Resp B/P Pulse Ox O2 Delivery O2 Flow Rate FiO2 12/14/16 07:40 97.4 56 19 156/92 96 12/14/16 04:00 97.3 55 18 155/88 96 12/14/16 00:50 98.0 53 20 121/82 95 12/13/16 20:00 97.9 60 20 156/79 97 12/13/16 19:51 60 12/13/16 16:39 98.6 60 18 124/76 97 12/13/16 12:54 98.3 64 18 136/81 95 I/O 12/13/16 12/13/16 12/13/16 12/14/16 12/14/16 12/14/16 07:00 15:00 23:00 07:00 15:00 23:00 Intake Total 480 ml 360 ml Output Total 200 ml 500 ml 3 ml Balance 480 ml 160 ml -500 ml -3 ml Intake Oral 480 ml 360 ml Output Urine Total 200 ml 500 ml 3 ml # Voids 3 # Bowel Movements 1 Result Diagram: 12/11/16 1100 12/11/16 1100 Imaging Last Impressions Head CT 12/11/16 1103 Signed Impressions: Service Date/Time: Sunday, December 11, 2016 11:33 - CONCLUSION: 1. Nonspecific white matter changes. 2. Small area of low attenuation high left parietal convexity could be an area of infarct of indeterminate age. MRI may be warranted. Ruddy Albert MD Head Magnetic Resonance Angiography 12/11/16 0000 Signed Impressions: Service Date/Time: Sunday, December 11, 2016 18:11 - CONCLUSION: Occluded left internal carotid artery with markedly diminished flow in the left MCA as described. Intact right cerebral circulation and vertebral basilar circulation. Vinay Montalvo MD Carotid Artery Ultrasound 12/11/16 0000 Signed Impressions: Service Date/Time: Sunday, December 11, 2016 14:30 - CONCLUSION: Occlusion of the left internal carotid artery. Calcific plaque on the right without hemodynamically significant stenosis. Khoi Sanchez MD FACR Brain MRI 12/11/16 0000 Signed Impressions: Service Date/Time: Sunday, December 11, 2016 18:11 - CONCLUSION: Acute nonhemorrhagic infarcts involving the left basal ganglia, left frontal lobe, left parietal lobe and left occipital lobe. Documented left internal carotid occlusion per MRA. No significant mass effect. Vinay Montalvo MD Objective Remarks GENERAL: NAD SKIN: Warm and dry. HEAD: Normocephalic. EYES: No scleral icterus. No injection or drainage. NECK: Supple, trachea midline. No JVD or lymphadenopathy. CARDIOVASCULAR: Regular rate and rhythm without murmurs, gallops, or rubs. RESPIRATORY: Breath sounds equal bilaterally. No accessory muscle use. GASTROINTESTINAL: Abdomen soft, non-tender, nondistended. MUSCULOSKELETAL: No cyanosis, or edema. NEURO: Right sided hemiparesis BACK: Nontender without obvious deformity. No CVA tenderness. Procedures None A/P Problem List: (1) CVA (cerebral vascular accident) ICD Code: I63.9 Status: Acute (2) Idiopathic ischemic cerebrovascular accident (CVA) in adult ICD Code: I63.9 Status: Acute Assessment and Plan 61-year-old man with Acute CVA: Treatment per stroke protocol -Continue with aspirin -Continue statin therapy -NIHSS, Neuro checks, Monitor on telemetry -PT/OT/ST evaluations, rehab medicine ff -s/p permissive HTN, IV Vasotec and IV labetalol if SBP >220 -LDL 104 and HgbA1c 5.1 -Carotid U/S noted -Head CT 12/11/16 noted and review by me with Nonspecific white matter changes. 2. Small area of low attenuation high left parietal convexity could be an area of infarct of indeterminate age - brain MRI/MRA findings noted -Echocardiogram with EF of 60% and Holter monitoring with normal sinus rhythm -Neurology ff Occlusion of the left internal carotid artery: Brain MRA and carotid ultrasound finding noted. History of hypertension: s/p permissive hypertension; Now on Low dose BB Nicotinic dependence: Counseled to quit, tx with nicotine patch DVT prophylaxis: Bilateral SCDs Discharge Planning Kip is evaluated patient for possible discharge next Friday to [facility] Rai MD Dec 14, 2016 09:46
[2016-12-14] MEDS: ASPIRIN 325 MG TAB PO SCH (09:49)
[2016-12-14] MEDS: NICOTINE 14 MG/24 HR PATCH TD SCH (09:49)
[2016-12-14] MEDS: METOPROLOL TARTRATE 50 MG TAB PO SCH ×2 (09:49→22:25)
[2016-12-14] MEDS ORDERED: GABA300C5 PO (13:27)
[2016-12-14] MEDS ORDERED: QUET1TAB7 PO (13:27)
[2016-12-14] MEDS ORDERED: SERT-132 PO (13:27)
[2016-12-14] MEDS ORDERED: BUPR1TAB29 PO (13:27)
[2016-12-14] MEDS: REMOVE OLD NICODERM (NICOTINE) PATCH TD SCH (22:25)
[2016-12-14] MEDS: ATORVASTATIN 10 MG TAB PO SCH (22:25)
[2016-12-15] VITALS (8 sets, daily range): BP systolic 120–154; BP diastolic 72–87; PULSE 53–61; RESP 18–20; TEMP 97.2–97.8; O2SAT 95–98
[2016-12-15] MEDS: HEPARIN SODIUM - SQ 10,000 UNITS/ML VIAL SQ SCH ×3 (05:36→20:56)
[2016-12-15] MEDS: SODIUM CHLORIDE 0.9% FLUSH 5 ML FLUSH IVF SCH ×2 (09:00→20:55)
[2016-12-15] MEDS: NICOTINE 14 MG/24 HR PATCH TD SCH (09:18)
[2016-12-15] MEDS: ASPIRIN 325 MG TAB PO SCH (09:18)
[2016-12-15] MEDS: METOPROLOL TARTRATE 50 MG TAB PO SCH ×2 (09:18→20:54)
--- NOTE | 2016-12-15 09:56 | HHI.PR ---
Subjective Remarks Follow-up acute ischemic stroke 12/12/16-patient seen and examined, no change and stable. Still with right- sided weakness/hemiparesis. 12/13/16-patient seen and examined, complains of right sided chest pain and he is wondering if he has not broken a rib otherwise he is stable 12/14/16-patient seen and examined, now able to move his right wrist. no acute event overnight. 12/15/16-patient seen and examined, able to move right arm to 90 flexion as well as right knee. No acute event overnight. Objective Vitals Vital Signs Date Time Temp Pulse Resp B/P Pulse Ox O2 Delivery O2 Flow Rate FiO2 12/15/16 08:00 97.6 55 18 144/87 97 12/15/16 04:00 97.2 56 20 154/83 98 12/15/16 00:00 97.3 61 20 123/76 97 12/14/16 22:00 58 12/14/16 20:00 97.8 63 20 119/76 96 12/14/16 16:05 98.9 64 18 118/62 93 12/14/16 12:08 97.4 58 20 119/73 12/14/16 10:47 52 I/O 12/14/16 12/14/16 12/14/16 12/15/16 12/15/16 12/15/16 07:00 15:00 23:00 07:00 15:00 23:00 Intake Total 1120 ml Output Total 3 ml 550 ml 300 ml Balance -3 ml 570 ml -300 ml Intake Oral 1120 ml Output Urine Total 3 ml 550 ml 300 ml # Bowel Movements 0 Result Diagram: 12/11/16 1100 12/11/16 1100 Imaging Last Impressions Head CT 12/11/16 1103 Signed Impressions: Service Date/Time: Sunday, December 11, 2016 11:33 - CONCLUSION: 1. Nonspecific white matter changes. 2. Small area of low attenuation high left parietal convexity could be an area of infarct of indeterminate age. MRI may be warranted. Ruddy Albert MD Head Magnetic Resonance Angiography 12/11/16 0000 Signed Impressions: Service Date/Time: Sunday, December 11, 2016 18:11 - CONCLUSION: Occluded left internal carotid artery with markedly diminished flow in the left MCA as described. Intact right cerebral circulation and vertebral basilar circulation. Vinay Montalvo MD Carotid Artery Ultrasound 12/11/16 0000 Signed Impressions: Service Date/Time: Sunday, December 11, 2016 14:30 - CONCLUSION: Occlusion of the left internal carotid artery. Calcific plaque on the right without hemodynamically significant stenosis. Khoi Sanchez MD FACR Brain MRI 12/11/16 0000 Signed Impressions: Service Date/Time: Sunday, December 11, 2016 18:11 - CONCLUSION: Acute nonhemorrhagic infarcts involving the left basal ganglia, left frontal lobe, left parietal lobe and left occipital lobe. Documented left internal carotid occlusion per MRA. No significant mass effect. Vinay Montalvo MD Objective Remarks GENERAL: NAD SKIN: Warm and dry. HEAD: Normocephalic. EYES: No scleral icterus. No injection or drainage. NECK: Supple, trachea midline. No JVD or lymphadenopathy. CARDIOVASCULAR: Regular rate and rhythm without murmurs, gallops, or rubs. RESPIRATORY: Breath sounds equal bilaterally. No accessory muscle use. GASTROINTESTINAL: Abdomen soft, non-tender, nondistended. MUSCULOSKELETAL: No cyanosis, or edema. 3/5 RUE/RLL; 5/5 LUE/LLE NEURO: Right sided weakness BACK: Nontender without obvious deformity. No CVA tenderness. Procedures None A/P Problem List: (1) CVA (cerebral vascular accident) ICD Code: I63.9 Status: Acute (2) Idiopathic ischemic cerebrovascular accident (CVA) in adult ICD Code: I63.9 Status: Acute (3) Anxiety and depression ICD Code: F41.9 Status: Acute Assessment and Plan 61-year-old man with Acute CVA: Treatment per stroke protocol -Continue with aspirin -Continue statin therapy -NIHSS, Neuro checks, Monitor on telemetry -PT/OT/ST evaluations, rehab medicine ff -s/p permissive HTN, -LDL 104 and HgbA1c 5.1 -Carotid U/S noted -Head CT 12/11/16 noted and review by me with Nonspecific white matter changes. 2. Small area of low attenuation high left parietal convexity could be an area of infarct of indeterminate age - brain MRI/MRA findings noted -Echocardiogram with EF of 60% and Holter monitoring with normal sinus rhythm -Neurology ff Occlusion of the left internal carotid artery: Brain MRA and carotid ultrasound finding noted. History of hypertension: s/p permissive hypertension; Now on Low dose BB Nicotinic dependence: Counseled to quit, tx with nicotine patch Depression/anxiety: Resume bupropion 150 mg by mouth twice a day as well as Seroquel 25 mg at bedtime DVT prophylaxis: Bilateral SCDs Discharge Planning Shin is evaluated patient for possible discharge next Friday12/16/16 to Rdudy Rai MD Dec 15, 2016 09:56
[2016-12-15] MEDS: QUEtiapine FUMARATE 25 MG TAB PO SCH (20:54)
[2016-12-15] MEDS: buPROPion HCL 150 MG SUSTAINED RELEASE TAB PO SCH (20:55)
[2016-12-15] MEDS: ATORVASTATIN 10 MG TAB PO SCH (20:55)
[2016-12-15] MEDS: REMOVE OLD NICODERM (NICOTINE) PATCH TD SCH (20:57)
[2016-12-16] VITALS (8 sets, daily range): BP systolic 109–132; BP diastolic 70–80; PULSE 50–60; RESP 18–20; TEMP 97.3–98; O2SAT 95–98
[2016-12-16] MEDS: HEPARIN SODIUM - SQ 10,000 UNITS/ML VIAL SQ SCH ×3 (05:14→21:37)
[2016-12-16 08:41] LABS: AUTOMATED NEUTROPHIL # 3.3 TH/MM3 (1.8-7.7); BASOPHIL # 0.1 TH/MM3 (0-0.2); BASOPHIL % 0.8 % (0.0-2.0); EOSINOPHIL # 0.3 TH/MM3 (0-0.4); EOSINOPHIL % 5.6 % (0.0-4.0); HEMATOCRIT 41.8 % (39.0-51.0); HEMO FLAGS DIFF FINAL; LYMPH % 28.6 % (9.0-44.0); LYMPHOCYTE # 1.7 TH/MM3 (1.0-4.8); MEAN CELL VOLUME 86.2 FL (80.0-100.0); MEAN CORPUSCULAR HEMOGLOBIN 28.8 PG (27.0-34.0); MEAN CORPUSCULAR HGB CONC 33.4 % (32.0-36.0); MONO % 9.9 % (0.0-8.0); NEUT % 55.1 % (16.0-70.0); PLATELET COUNT 177 TH/MM3 (150-450); RED BLOOD COUNT 4.84 MIL/MM3 (4.50-5.90); RED CELL DISTRIBUTION WIDTH 14.6 % (11.6-17.2)
[2016-12-16] MEDS: ASPIRIN 325 MG TAB PO SCH (09:00)
[2016-12-16] MEDS: NICOTINE 14 MG/24 HR PATCH TD SCH (09:01)
[2016-12-16] MEDS: buPROPion HCL 150 MG SUSTAINED RELEASE TAB PO SCH ×2 (09:01→19:55)
[2016-12-16] MEDS: METOPROLOL TARTRATE 50 MG TAB PO SCH ×2 (09:01→19:54)
[2016-12-16 09:12] LABS: BICARBONATE 26.9 MEQ/L (21.0-32.0); POTASSIUM 4.4 MEQ/L (3.5-5.1)
--- NOTE | 2016-12-16 15:00 | HHI.PR ---
Subjective Subjective Comments Patient awake and alert. Denies any headache. Feels that his right upper and lower extremity strength is improving Allergies: Coded Allergies: No Known Allergies (Verified , 12/11/16) Review of Systems All other ROS: ROS reviewed as documented in chart Exam I&O / VS 12/15/16 12/15/16 12/16/16 15:00 23:00 07:00 Intake Total 720 ml Output Total 850 ml 450 ml Balance -130 ml -450 ml Intake Oral 720 ml Output Urine Total 850 ml 450 ml # Voids 0 Vital Signs Date Time Temp Pulse Resp B/P Pulse Ox O2 Delivery O2 Flow Rate FiO2 12/16/16 12:28 97.7 56 20 109/75 95 12/16/16 08:27 97.3 56 20 124/74 96 12/16/16 07:00 50 12/16/16 04:00 97.5 55 19 126/77 98 12/16/16 00:59 97.5 57 20 130/72 97 12/15/16 23:00 58 12/15/16 20:14 97.8 59 18 120/72 97 12/15/16 16:09 97.5 56 18 124/73 96 General: No acute distress Psychiatric: Cooperative, Appropriate mood & affect Orientation: oriented to Self, oriented to Place, oriented to Time (with cues) , oriented to Situation Neurologic: Pupils (PERRLA), EOM (tracks right and left), Speech (intelligible) Motor: 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; 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), Left Upper Extremity (5/5), Right Lower Extremity (hip extension 1/5; knee extension 2/5), Left Lower Extremity (5/5) Objective Micro and Labs Laboratory Tests Test 12/16/16 08:11 White Blood Count 6.0 Red Blood Count 4.84 Hemoglobin 13.9 Hematocrit 41.8 Mean Corpuscular Volume 86.2 Mean Corpuscular Hemoglobin 28.8 Mean Corpuscular Hemoglobin 33.4 Concent Red Cell Distribution Width 14.6 Platelet Count 177 Mean Platelet Volume 9.0 Neutrophils (%) (Auto) 55.1 Lymphocytes (%) (Auto) 28.6 Monocytes (%) (Auto) 9.9 Eosinophils (%) (Auto) 5.6 Basophils (%) (Auto) 0.8 Neutrophils # (Auto) 3.3 Lymphocytes # (Auto) 1.7 Monocytes # (Auto) 0.6 Eosinophils # (Auto) 0.3 Basophils # (Auto) 0.1 CBC Comment DIFF FINAL Differential Comment Sodium Level 140 Potassium Level 4.4 Chloride Level 107 Carbon Dioxide Level 26.9 Anion Gap 6 Blood Urea Nitrogen 22 Creatinine 1.05 Estimat Glomerular Filtration 72 Rate Random Glucose 92 Calcium Level 10.8 Assessment and Plan Diagnosis: (1) CVA (cerebral vascular accident) Qualified Code: I63.232 - Cerebrovascular accident (CVA) due to occlusion of left carotid artery (2) Carotid occlusion, left (3) Tobacco use (4) Hypertension Qualified Code: I10 - Essential hypertension Assessment 1. Left internal carotid artery occlusion with left basal ganglia, left frontal , left parietal and left occipital infarcts with right hemiparesis and right hemisensory impairment 2. Hypertension 3. History of tobacco use Plan 1. Physical therapy is providing mobility training and patient is now mod to max assist for transfers. Continue to progress to gait 2. Occupational therapy for ADLs and patient is currently maximal assistance for grooming independent for dressing. Continue to progress 3. Speech therapy for cognitive evaluation 4. Close supervision for fall prevention 5. Continue to monitor skin and elevate right heel when in bed 6. Patient will likely need ongoing inpatient rehabilitation at discharge. Case management is working on disposition planning 7. Will continue to follow while hospitalized and at discharge Asya Alfonso MD Dec 16, 2016 15:00
[2016-12-16] MEDS: SODIUM CHLORIDE 0.9% FLUSH 5 ML FLUSH IVF SCH (19:53)
[2016-12-16] MEDS: ATORVASTATIN 10 MG TAB PO SCH (19:54)
[2016-12-16] MEDS: QUEtiapine FUMARATE 25 MG TAB PO SCH (19:55)
[2016-12-16] MEDS: REMOVE OLD NICODERM (NICOTINE) PATCH TD SCH (19:57)
--- NOTE | 2016-12-16 20:42 | RADRPT ---
EXAM DATE/TIME: 12/16/2016 20:23 [facility] COMPARISON: No previous studies available for comparison. INDICATIONS : Left rib pain after fall. MEDICAL HISTORY : None. SURGICAL HISTORY : None. ENCOUNTER: Initial ACUITY: 1 week PAIN SCORE: 4/10 LOCATION: Left upper chest FINDINGS: Multiple views of the left ribs were performed. There is no evidence of displaced fracture. No dest ructive lesions or areas of periosteal thickening are seen. Expiratory view of the chest is negative for pneumothorax. The mediastinal structures are midline. CONCLUSION: No perceptible left rib fracture. No pneumothorax or other acute cardiopulmonary disease demonstrated . Ashutosh Forde MD on December 16, 2016 at 20:40 Board Certified Radiologist. This report was verified electronically.
--- NOTE | 2016-12-16 23:40 | HHI.PR ---
Subjective Remarks patient seen today around 2 PM. Discussed with family at bedside. He says he feels well. He denies any shortness breath. He does report pleuritic left- sided chest pain since the time of admission. Objective Vital Signs Date Time Temp Pulse Resp B/P Pulse Ox O2 Delivery O2 Flow Rate FiO2 12/16/16 20:00 98.0 60 18 122/70 96 12/16/16 19:03 57 12/16/16 16:17 97.8 54 20 132/80 95 12/16/16 12:28 97.7 56 20 109/75 95 12/16/16 08:27 97.3 56 20 124/74 96 12/16/16 07:00 50 12/16/16 04:00 97.5 55 19 126/77 98 12/16/16 00:59 97.5 57 20 130/72 97 I/O 12/15/16 12/15/16 12/15/16 12/16/16 12/16/16 12/16/16 07:00 15:00 23:00 07:00 15:00 23:00 Intake Total 720 ml 360 ml Output Total 300 ml 850 ml 450 ml Balance -300 ml -130 ml -450 ml 360 ml Intake Oral 720 ml 360 ml Output Urine Total 300 ml 850 ml 450 ml # Voids 0 Result Diagram: 12/16/16 0811 12/16/16 0811 Imaging Last Impressions Ribs X-Ray 12/16/16 0000 Signed Impressions: Service Date/Time: Friday, December 16, 2016 20:23 - CONCLUSION: No perceptible left rib fracture. No pneumothorax or other acute cardiopulmonary disease demonstrated. Ashutosh Forde MD Head CT 12/11/16 1103 Signed Impressions: Service Date/Time: Sunday, December 11, 2016 11:33 - CONCLUSION: 1. Nonspecific white matter changes. 2. Small area of low attenuation high left parietal convexity could be an area of infarct of indeterminate age. MRI may be warranted. Ruddy Albert MD Head Magnetic Resonance Angiography 12/11/16 0000 Signed Impressions: Service Date/Time: Sunday, December 11, 2016 18:11 - CONCLUSION: Occluded left internal carotid artery with markedly diminished flow in the left MCA as described. Intact right cerebral circulation and vertebral basilar circulation. Vinay Montalvo MD Carotid Artery Ultrasound 12/11/16 0000 Signed Impressions: Service Date/Time: Sunday, December 11, 2016 14:30 - CONCLUSION: Occlusion of the left internal carotid artery. Calcific plaque on the right without hemodynamically significant stenosis. Khoi Sanchez MD FACR Brain MRI 12/11/16 0000 Signed Impressions: Service Date/Time: Sunday, December 11, 2016 18:11 - CONCLUSION: Acute nonhemorrhagic infarcts involving the left basal ganglia, left frontal lobe, left parietal lobe and left occipital lobe. Documented left internal carotid occlusion per MRA. No significant mass effect. Vinay Montalvo MD Objective Remarks GENERAL: patient lying in bed. Appears comfortable. He is alert and oriented 3. Speech is clear. SKIN: Warm and dry. HEAD: Normocephalic. EYES: No scleral icterus. No injection or drainage. NECK: Supple, trachea midline. No JVD. CARDIOVASCULAR: Regular rate and rhythm without murmurs, gallops, or rubs. RESPIRATORY: Breath sounds equal bilaterally. No accessory muscle use. GASTROINTESTINAL: Abdomen soft, non-tender, nondistended. MUSCULOSKELETAL: No cyanosis, or edema. neurologist. Right-sided weakness, was 4 out of 5 strength right-sided upper and lower extremities. 5 out of 5 strength on the left. BACK: Nontender without obvious deformity. No CVA tenderness. A/P Assessment and Plan 61-year-old man with //Acute CVA: Treatment per stroke protocol -Continue with aspirin -Continue statin therapy -NIHSS, Neuro checks, Monitor on telemetry -PT/OT/ST evaluations, rehab medicine ff -s/p permissive HTN, -LDL 104 and HgbA1c 5.1 -Carotid U/S noted -Head CT 12/11/16 noted and review by me with Nonspecific white matter changes. 2. Small area of low attenuation high left parietal convexity could be an area of infarct of indeterminate age - brain MRI/MRA findings noted -Echocardiogram with EF of 60% and Holter monitoring with normal sinus rhythm -Neurology ff -Rehabilitation medicine following. Appreciate assistance. Family working on discharge planning, after which patient can be accepted at [facility]. //Occlusion of the left internal carotid artery: Brain MRA and carotid ultrasound finding noted. //Pleuritic left-sided chest pain. Rib x-ray ordered and negative. -Unlikely PE. D-dimer pending. //History of hypertension: s/p permissive hypertension; Now on Low dose BB //Nicotinic dependence: Counseled to quit, tx with nicotine patch //Depression/anxiety: Continue bupropion 150 mg by mouth twice a day as well as Seroquel 25 mg at bedtime //DVT prophylaxis: Bilateral SCDs Discharge Planning when family arranges for discharge plan, patient can be discharged to [facility] as a layo admission. Ronny Gudino MD Dec 16, 2016 23:40
[2016-12-17] VITALS (8 sets, daily range): BP systolic 117–172; BP diastolic 65–93; PULSE 50–57; RESP 16–18; TEMP 96.3–98; O2SAT 95–97
[2016-12-17] MEDS: HEPARIN SODIUM - SQ 10,000 UNITS/ML VIAL SQ SCH ×3 (05:44→21:54)
[2016-12-17] MEDS: ASPIRIN 325 MG TAB PO SCH (08:48)
[2016-12-17] MEDS: NICOTINE 14 MG/24 HR PATCH TD SCH (08:49)
[2016-12-17] MEDS: METOPROLOL TARTRATE 50 MG TAB PO SCH ×2 (08:49→21:55)
[2016-12-17] MEDS: SODIUM CHLORIDE 0.9% FLUSH 5 ML FLUSH IVF SCH ×3 (08:50→21:55)
[2016-12-17] MEDS: buPROPion HCL 150 MG SUSTAINED RELEASE TAB PO SCH ×2 (08:50→21:56)
[2016-12-17] MEDS ORDERED: IPRASOL NEB (10:43)
[2016-12-17] MEDS ORDERED: ASPI325T PO (10:43)
[2016-12-17] MEDS ORDERED: METO-309 PO (10:43)
[2016-12-17] MEDS ORDERED: LIPI10TA PO (10:43)
[2016-12-17] MEDS ORDERED: IOHEXOL 350 MG/ML 10 ML VIAL (for RAD DIAG) IV ONE (15:25)
--- NOTE | 2016-12-17 15:46 | RADRPT ---
EXAM DATE/TIME: 12/17/2016 15:09 [facility] COMPARISON: No previous studies available for comparison. INDICATIONS : Chest pain IV CONTRAST: 62 cc Omnipaque 350 (iohexol) IV RADIATION DOSE: 1950 CTDIvol (mGy) MEDICAL HISTORY : Cardiovascular disease. Hypertension. SURGICAL HISTORY : None. ENCOUNTER: Initial ACUITY: 1 day PAIN SCALE: 5/10 LOCATION: chest TECHNIQUE: Volumetric scanning of the chest was performed using a pulmonary embolism protocol MIP images were re constructed. Using automated exposure control and adjustment of the mA and/or kV according to patien t size, radiation dose was kept as low as reasonably achievable to obtain optimal diagnostic quality images. FINDINGS: PULMONARY ARTERIES: No filling defects are seen in the pulmonary arteries through the segmental level. LUNGS: There is no consolidation or pneumothorax . No concerning pulmonary nodule is visualized. PLEURAE: There is no pleural thickening or pleural effusion. MEDIASTINUM: There is good visualization of the great vessels of the middle mediastinum. No evidence of mediastin al or hilar adenopathy/mass. Coronary artery calcifications. MUSCULOSKELETAL: Within normal limits for patient age. MISCELLANEOUS: The visualized upper abdominal organs demonstrate no acute abnormality. Bilateral renal low densities . CONCLUSION: 1. No evidence for pulmonary embolism. 2. Extensive coronary artery calcifications. 3. No consolidation or pleural effusion. Ruddy Albert MD on December 17, 2016 at 15:40 Board Certified Radiologist. This report was verified electronically.
[2016-12-17] MEDS: REMOVE OLD NICODERM (NICOTINE) PATCH TD SCH (21:00)
[2016-12-17] MEDS: ATORVASTATIN 10 MG TAB PO SCH (21:54)
[2016-12-17] MEDS: QUEtiapine FUMARATE 25 MG TAB PO SCH (21:54)
--- NOTE | 2016-12-17 23:47 | HHI.PR ---
Subjective Remarks patient seen today around 11 AM. Says he is feeling well. He continues to report pleuritic left-sided chest pain since admission. Chest x-ray reviewed and negative. He denies any shortness of breath Objective Vital Signs Date Time Temp Pulse Resp B/P Pulse Ox O2 Delivery O2 Flow Rate FiO2 12/17/16 20:00 97.3 56 18 120/65 95 12/17/16 16:04 97.6 53 16 117/66 97 12/17/16 11:00 98.0 54 18 122/69 97 12/17/16 08:36 172/93 12/17/16 08:11 96.3 52 18 127/76 95 12/17/16 05:43 50 12/17/16 05:20 96.4 57 16 127/70 97 12/17/16 00:00 97.6 51 18 125/73 97 I/O 12/16/16 12/16/16 12/16/16 12/17/16 12/17/16 12/17/16 07:00 15:00 23:00 07:00 15:00 23:00 Intake Total 360 ml 240 ml 840 ml Output Total 250 ml 650 ml 1125 ml 400 ml Balance 360 ml -10 ml -650 ml -285 ml -400 ml Intake Oral 360 ml 240 ml 840 ml Output Urine Total 250 ml 650 ml 1125 ml 400 ml # Voids 0 # Bowel Movements 0 0 0 Result Diagram: 12/16/16 0811 12/16/16 0811 Objective Remarks GENERAL: patient lying in bed. Appears comfortable. He is alert and oriented 3. Speech is clear.no change on exam. SKIN: Warm and dry. HEAD: Normocephalic. EYES: No scleral icterus. No injection or drainage. NECK: Supple, trachea midline. No JVD. CARDIOVASCULAR: Regular rate and rhythm without murmurs, gallops, or rubs. RESPIRATORY: Breath sounds equal bilaterally. No accessory muscle use. GASTROINTESTINAL: Abdomen soft, non-tender, nondistended. MUSCULOSKELETAL: No cyanosis, or edema. neurologist. Right-sided weakness, was 4 out of 5 strength right-sided upper and lower extremities. 5 out of 5 strength on the left. BACK: Nontender without obvious deformity. No CVA tenderness. A/P Assessment and Plan 61-year-old man with //Acute CVA: Treatment per stroke protocol -Continue with aspirin -Continue statin therapy -NIHSS, Neuro checks, Monitor on telemetry -PT/OT/ST evaluations, rehab medicine ff -s/p permissive HTN, -LDL 104 and HgbA1c 5.1 -Carotid U/S noted -Head CT 12/11/16 noted and review by me with Nonspecific white matter changes. 2. Small area of low attenuation high left parietal convexity could be an area of infarct of indeterminate age - brain MRI/MRA findings noted -Echocardiogram with EF of 60% and Holter monitoring with normal sinus rhythm -Neurology ff -Rehabilitation medicine following. Appreciate assistance. Family working on discharge planning, after which patient can be accepted at [place]. //Occlusion of the left internal carotid artery: Brain MRA and carotid ultrasound finding noted. //Pleuritic left-sided chest pain. Rib x-ray ordered and negative. - D-dimer 0.7. CT pulmonary antigram negative for PE. -Expect this is a bruised rib. Expect continued to improve. //History of hypertension: s/p permissive hypertension; Now on Low dose BB //Nicotinic dependence: Counseled to quit, tx with nicotine patch //Depression/anxiety: Continue bupropion 150 mg by mouth twice a day as well as Seroquel 25 mg at bedtime //DVT prophylaxis: Bilateral SCDs Discharge Planning when family arranges for discharge plan, patient can be discharged to [facility] as a layo admission.family to arrange discharge plan. Appreciate case management assistance. Ronny Gudino MD Dec 17, 2016 23:47
[2016-12-18] VITALS: BP 118/64; PULSE 67; RESP 18; TEMP 97.5; O2SAT 95
[2016-12-18 04:00] VITALS: BP 126/73; PULSE 52; RESP 18; TEMP 97.2; O2SAT 98
[2016-12-18] MEDS: HEPARIN SODIUM - SQ 10,000 UNITS/ML VIAL SQ SCH ×2 (07:01→12:44)
[2016-12-18 08:16] VITALS: BP 127/75; PULSE 52; RESP 20; TEMP 97.8; O2SAT 96
[2016-12-18] MEDS: buPROPion HCL 150 MG SUSTAINED RELEASE TAB PO SCH (08:20)
[2016-12-18] MEDS: METOPROLOL TARTRATE 50 MG TAB PO SCH (08:20)
[2016-12-18] MEDS: SODIUM CHLORIDE 0.9% FLUSH 5 ML FLUSH IVF SCH (08:20)
[2016-12-18] MEDS: ASPIRIN 325 MG TAB PO SCH (08:20)
[2016-12-18] MEDS: NICOTINE 14 MG/24 HR PATCH TD SCH (08:22)
[2016-12-18 08:53] VITALS: PULSE 50
[2016-12-18 12:00] VITALS: BP 113/66; PULSE 52; RESP 18; TEMP 97.1; O2SAT 96
[2016-12-18] MEDS ORDERED: DOCUSATE SODIUM 50 MG/SENNA 8.6 MG TAB PO ONE (15:00)
[2016-12-18] MEDS ORDERED: MAGNESIUM HYDROXIDE SUSP 30 ML CUP PO ONE (15:00)
[2016-12-18] MEDS ORDERED: SOD PHOSPHATE/SOD BIPHOSPHATE (ADULT) ENEMA 133ML PR ONE (15:00)
[2016-12-18 16:00] VITALS: BP 117/71; PULSE 53; RESP 19; TEMP 97.6; O2SAT 97
--- NOTE | 2016-12-28 17:59 | HHI.PR ---
Subjective Remarks date of service 12/18/16.patient says he is feeling well. He reports that pleuritic left-sided chest pain is stable. Denies any other chest pain. Denies any shortness of breath. Objective Objective Remarks GENERAL: patient lying in bed. Appears comfortable. He is alert and oriented 3. Speech is clear.no change from day prior. SKIN: Warm and dry. HEAD: Normocephalic. EYES: No scleral icterus. No injection or drainage. NECK: Supple, trachea midline. No JVD. CARDIOVASCULAR: Regular rate and rhythm without murmurs, gallops, or rubs. RESPIRATORY: Breath sounds equal bilaterally. No accessory muscle use. GASTROINTESTINAL: Abdomen soft, non-tender, nondistended. MUSCULOSKELETAL: No cyanosis, or edema. neurologist. Right-sided weakness, was 4 out of 5 strength right-sided upper and lower extremities. 5 out of 5 strength on the left. BACK: Nontender without obvious deformity. No CVA tenderness. A/P Assessment and Plan 61-year-old man with //Acute CVA: Treatment per stroke protocol -Continue with aspirin -Continue statin therapy -NIHSS, Neuro checks, Monitor on telemetry -PT/OT/ST evaluations, rehab medicine ff -s/p permissive HTN, -LDL 104 and HgbA1c 5.1 -Carotid U/S noted -Head CT 12/11/16 noted and review by me with Nonspecific white matter changes. 2. Small area of low attenuation high left parietal convexity could be an area of infarct of indeterminate age - brain MRI/MRA findings noted -Echocardiogram with EF of 60% and Holter monitoring with normal sinus rhythm -Neurology ff -Rehabilitation medicine following. Appreciate assistance. discharge to inpatient rehabilitation. //Occlusion of the left internal carotid artery: Brain MRA and carotid ultrasound finding noted. //Pleuritic left-sided chest pain. Rib x-ray ordered and negative. - D-dimer 0.7. CT pulmonary antigram negative for PE. -Expect this is a bruised rib. Expect continued to improve. //History of hypertension: s/p permissive hypertension; Now on Low dose BB //Nicotinic dependence: Counseled to quit, tx with nicotine patch //Depression/anxiety: Continue bupropion 150 mg by mouth twice a day as well as Seroquel 25 mg at bedtime //DVT prophylaxis: Bilateral SCDs Discharge Planning patient can be discharged to inpatient rehabilitation. Appreciate case management assistance. Ronny Gudino MD Dec 28, 2016 17:59
--- NOTE | 2016-12-28 18:01 | HHI.DS ---
Discharge Summary Admission Date Dec 11, 2016 at 13:39 Discharge Date: Dec 18, 2016 Admitting Diagnosis acute ischemic CVA (1) CVA (cerebral vascular accident) ICD Code: I63.9 (2) Idiopathic ischemic cerebrovascular accident (CVA) in adult ICD Code: I63.9 (3) Anxiety and depression ICD Code: F41.9 Procedures None Brief History - From Admission 61 year-old male with a history of hypertension, tobacco abuse was brought to the ED for evaluation of right-sided weakness which patient noticed yesterday morning after he woke up from sleep. Had both right arm and right leg weakness and inability to move the whole entire right side and remained in his bed for a few hours before able to make a phone call as patient stated he was unable to reach a phone. He claimed, he was well the night before going to bed. He had no other symptoms including slurring of speech, confusion, chest pain or shortness of breath. He denies any head trauma. He reports about 28 hours of right-sided weakness prior to coming to the hospital. Imaging Last Impressions CT Angiography 12/17/16 0000 Signed Impressions: Service Date/Time: Saturday, December 17, 2016 15:09 - CONCLUSION: 1. No evidence for pulmonary embolism. 2. Extensive coronary artery calcifications. 3. No consolidation or pleural effusion. Ruddy Albert MD Ribs X-Ray 12/16/16 0000 Signed Impressions: Service Date/Time: Friday, December 16, 2016 20:23 - CONCLUSION: No perceptible left rib fracture. No pneumothorax or other acute cardiopulmonary disease demonstrated. Ashutosh Forde MD Head CT 12/11/16 1103 Signed Impressions: Service Date/Time: Sunday, December 11, 2016 11:33 - CONCLUSION: 1. Nonspecific white matter changes. 2. Small area of low attenuation high left parietal convexity could be an area of infarct of indeterminate age. MRI may be warranted. Ruddy Albert MD Head Magnetic Resonance Angiography 12/11/16 0000 Signed Impressions: Service Date/Time: Sunday, December 11, 2016 18:11 - CONCLUSION: Occluded left internal carotid artery with markedly diminished flow in the left MCA as described. Intact right cerebral circulation and vertebral basilar circulation. Vinay Montalvo MD Carotid Artery Ultrasound 12/11/16 0000 Signed Impressions: Service Date/Time: Sunday, December 11, 2016 14:30 - CONCLUSION: Occlusion of the left internal carotid artery. Calcific plaque on the right without hemodynamically significant stenosis. Khoi Sanchez MD FACR Brain MRI 12/11/16 0000 Signed Impressions: Service Date/Time: Sunday, December 11, 2016 18:11 - CONCLUSION: Acute nonhemorrhagic infarcts involving the left basal ganglia, left frontal lobe, left parietal lobe and left occipital lobe. Documented left internal carotid occlusion per MRA. No significant mass effect. Vinay Montalvo MD PE at Discharge GENERAL: NAD SKIN: Warm and dry. HEAD: Normocephalic. EYES: No scleral icterus. No injection or drainage. NECK: Supple, trachea midline. No JVD or lymphadenopathy. CARDIOVASCULAR: Regular rate and rhythm without murmurs, gallops, or rubs. RESPIRATORY: Breath sounds equal bilaterally. No accessory muscle use. GASTROINTESTINAL: Abdomen soft, non-tender, nondistended. MUSCULOSKELETAL: No cyanosis, or edema. 3/5 RUE/RLL; 5/5 LUE/LLE NEURO: Right sided weakness BACK: Nontender without obvious deformity. No CVA tenderness. Hospital Course Patient was found to have acute infarcts involving the left basal ganglia, left frontal lobe, left parietal lobe, left occipital lobe. Right-sided weakness. Left carotid occlusion on MRA. Patient was managed with permissive hypertension. Discharged to rehabilitation in good condition. Follow up with neurology as outpatient. Started on aspirin, statin, metoprolol For problem-based summary from most recent progress note, please see below. 61-year-old man with //Acute CVA: Treatment per stroke protocol -Continue with aspirin -Continue statin therapy -NIHSS, Neuro checks, Monitor on telemetry -PT/OT/ST evaluations, rehab medicine ff -s/p permissive HTN, -LDL 104 and HgbA1c 5.1 -Carotid U/S noted -Head CT 12/11/16 noted and review by me with Nonspecific white matter changes. 2. Small area of low attenuation high left parietal convexity could be an area of infarct of indeterminate age - brain MRI/MRA findings noted -Echocardiogram with EF of 60% and Holter monitoring with normal sinus rhythm -Neurology ff -Rehabilitation medicine following. Appreciate assistance. discharge to inpatient rehabilitation. //Occlusion of the left internal carotid artery: Brain MRA and carotid ultrasound finding noted. //Pleuritic left-sided chest pain. Rib x-ray ordered and negative. - D-dimer 0.7. CT pulmonary antigram negative for PE. -Expect this is a bruised rib. Expect continued to improve. //History of hypertension: s/p permissive hypertension; Now on Low dose BB //Nicotinic dependence: Counseled to quit, tx with nicotine patch //Depression/anxiety: Continue bupropion 150 mg by mouth twice a day as well as Seroquel 25 mg at bedtime //DVT prophylaxis: Bilateral SCDs Discharge Planning patient can be discharged to inpatient rehabilitation. Appreciate case management assistance. Pt Condition on Discharge: Good Discharge Disposition: Rehab Inpatient Discharge Time: <= 30 minutes Discharge Instructions DIET: Follow Instructions for: Heart Healthy Diet Activities you can perform: Regular-No Restrictions Other Activity Instructions: Up with assist Follow up Referrals: Neurology - 2 Weeks with Herve Sanchez MD Physical Medicine & Rehab - 3 Months with Asya Alfonso MD New Medications: Aspirin (Aspirin) 325 Mg Tab 325 MG PO DAILY Stroke prevention Days 30 TAB Atorvastatin (Lipitor) 10 Mg Tab 10 MG PO HS Cholesterol Management Days 30 TAB Ipratropium-Albuterol Neb (Duoneb) 0.5-2.5 Mg/3 Ml Neb 1 AMPULE NEB Q2HR NEB PRN SOB/WHEEZING Days 30 ML Metoprolol Tartrate (Lopressor) 50 Mg Tab 50 MG PO Q12HR heart Days 30 TAB Continued Medications: Bupropion HCl ER 12 HR (Wellbutrin SR 12 HR) 150 Mg Tab 150 MG PO Q12HR Control Depression Ref 0 TAB Quetiapine (Quetiapine) 25 Mg Tab 25 MG PO HS #30 Ref 0 TAB Discontinued Medications: Bupropion HCl ER 12 HR (Bupropion HCl ER 12 HR) 150 Mg Tab 150 MG PO Q12HR Ref 0 TAB Gabapentin (Gabapentin) 300 Mg Cap 300 MG PO TID #90 Ref 0 CAP Lisinopril (Lisinopril) 10 Mg Tab 10 MG PO DAILY #30 Ref 0 TAB Sertraline (Zoloft) 50 Mg Tab 50 MG PO DAILY #30 Ref 0 TAB Sertraline (Sertraline) 50 Mg Tab 50 MG PO DAILY #30 Ref 0 TAB Ronny Gudino MD Dec 28, 2016 18:01
[2016-12-31] MEDS ORDERED: QUAD CANE/SMALL1 MI1 (08:18)
[2017-01-01] MEDS ORDERED: QUET1TAB7 PO (14:52)
[2017-01-01] MEDS ORDERED: LIPI10TA PO (14:52)
[2017-01-01] MEDS ORDERED: ACET325T PO (14:52)
[2017-01-01] MEDS ORDERED: GABA100C4 PO (14:52)
[2017-01-01] MEDS ORDERED: DOCU1CAP39 PO (14:52)
[2017-01-01] MEDS ORDERED: BUPR150CR PO (14:52)
[2017-01-01] MEDS ORDERED: NEUR300C PO (14:52)
[2017-01-01] MEDS ORDERED: ASPI325T PO (14:52)
== END 2016-12-18 17:32 | DRG 65 ==
LOC: NEPA 10:53 → NEDA 13:39 → N05B 21:06
PROVIDERS: ADMIT Internal Medicine; ATTEND Internal Medicine
DX: I63.232 Cerebral infarction due to unspecified occlusion or stenosis of left carotid arteries (principal); G81.91 Hemiplegia, unspecified affecting right dominant side; I10 Essential (primary) hypertension; F43.10 Post-traumatic stress disorder, unspecified; F31.9 Bipolar disorder, unspecified; F17.210 Nicotine dependence, cigarettes, uncomplicated; F12.90 Cannabis use, unspecified, uncomplicated; R29.702 NIHSS score 2
CPT/HCPCS: 70450; 70544; 70551; 71101; 71275; 80048; 80061; 82948; 83036; 85025; 85379; 85610; 85730; 93005; 93225; 93226; 93306; 93880; J1644; Q9967